=== PATIENT | female | born 1940 | race Caucasian/White ===

== ENCOUNTER 2016-05-19 08:46 | Day surgery (SDC) | payer OTHER ==
[~2016-05-19] VITALS: Ht 172.7 cm; Wt 85.0 kg
[~2016-05-19 08:46] MED LIST: ACTOS30 MG PO; GLUCOPHAGE500 MG PO; JANUVIA100 MG PO; LEVEMIR FL100 UNIT/1 SC; PRAVACHOL20 MG PO
[2016-05-19 09:12] VITALS: BP 213/88
[2016-05-19 09:30] LABS: POINT-OF-CARE METER ID UU14174212
[2016-05-19 12:35] LABS: POINT-OF-CARE METER ID UU13113675
[2016-05-19 12:55] VITALS: BP 129/64
[2016-05-19 13:34] VITALS: BP 143/65
== END 2016-05-19 13:51 | disposition home or self-care (01) ==
LOC: SDC 08:46
PROVIDERS: Ophthalmology
PROC: 08B43ZZ Excision of Right Vitreous, Percutaneous Approach (ICD-10-PCS; principal; 2016-05-19)
DX: H34.8111 Central retinal vein occlusion, right eye, with retinal neovascularization (principal); H43.11 Vitreous hemorrhage, right eye; E11.9 Type 2 diabetes mellitus without complications; H40.9 Unspecified glaucoma; E78.5 Hyperlipidemia, unspecified; Z79.4 Long term (current) use of insulin; Z82.49 Family history of ischemic heart disease and other diseases of the circulatory system; Z83.3 Family history of diabetes mellitus
CPT/HCPCS: 82948; J0360; J0690; J0713; J2795; J3300